=== PATIENT | female | born 1960 | race African-American/Black ===

== ENCOUNTER 2024-06-25 15:45 | Inpatient (IN) | payer OTHER, MEDICARE ==
[~2024-06-25] VITALS: Ht 157.5 cm; Wt 53.2 kg
[2024-06-25 19:27] LABS: BASOPHILS % 0.2 % (0.0-2.0); EOSINOPHILS % 0.4 % (0.0-5.0); HEMATOCRIT. 36.1 % (36.0-48.0); HEMOGLOBIN. 11.9 g/dL (12.0-16.0); LYMPHOCYTES % 18.6 % (20.0-50.0); MEAN CORPUSCULAR HEMOGLOBIN 31.5 pg (28.0-32.0); MEAN CORPUSCULAR HGB CONC 32.9 g/dL (31.0-37.0); MEAN CORPUSCULAR VOLUME 95.8 fL (81.0-99.0); MEAN PLATELET VOLUME 9.7 fl (7.4-10.4); NEUTROPHILS % 68.8 % (40.0-76.0); PLATELET 240 x1000/uL (130-400); RED BLOOD CELL COUNT 3.77 mill/uL (4.2-5.4); RED CELL DISTRIBUTION WIDTH 14.1 % (11.6-14.6); WHITE BLOOD COUNT 13.9 x1000/uL (4.5-11.0)
[2024-06-25 19:34] LABS: CHLORIDE 104 mEq/L (98-107); POTASSIUM 3.7 mEq/L (3.5-5.1); SODIUM 139 mEq/L (136-145)
[2024-06-25 19:37] LABS: CALCIUM 10.1 mg/dL (8.7-10.4); CARBON DIOXIDE 26 mEq/L (21-32)
[2024-06-25 19:42] LABS: ALANINE AMINOTRANSFERASE 35 IU/L (10-49); CREATININE 1.1 mg/dL (0.6-1.0); GLUCOSE 91 mg/dL (70-105); UREA NITROGEN BLOOD 16 mg/dL (9-23)
[2024-06-25 19:44] LABS: ALBUMIN 4.5 g/dL (3.2-4.8); ASPARTATE AMINOTRANSFERASE 28 IU/L (<34); BILIRUBIN DIRECT 0.2 mg/dL (<=3.0); BILIRUBIN TOTAL 0.6 mg/dL (0.1-1.0); PROTEIN TOTAL 7.9 g/dL (6.0-8.3)
[2024-06-25] MEDS: KETOROLAC 15MG/ML VIAL IV ONE (21:53)
[2024-06-25] MEDS: CEFTRIAXONE 1GM/50ML 50 ML IV NR (21:56)
[2024-06-26] MEDS: MORPHINE SULFATE 2 MG/ML INJ (NOT FOR IM USE) IV ONE (01:05)
[2024-06-26 04:00] VITALS: BP 164/81; PULSE 89; RESP 18; TEMP 37.00296; O2SAT 99
[2024-06-26 04:11] LABS: CLARITY URINE CLOUDY (CLEAR); COLOR URINE YELLOW (YELLOW); GLUCOSE URINE NEGATIVE (NEGATIVE); KETONES URINE NEGATIVE (NEGATIVE); LEUKOCYTE ESTERASE URINE 1+ (NEGATIVE); NITRITE URINE NEGATIVE (NEGATIVE); OCCULT BLOOD URINE 1+ (NEGATIVE); PH URINE 5.5 (4.5-8.0); PROTEIN URINE 1+ (NEGATIVE); SPECIFIC GRAVITY URINE 1.012 (1.005-1.030); UROBILINOGEN URINE 0.2 E.U./dL (0.2-1.0)
[2024-06-26 04:32] LABS: WBC URINE TNTC /hpf (0-2)
[2024-06-26 04:33] LABS: BACTERIA URINE 3+; SQUAMOUS EPITHELIAL CELL URINE 1+ /lpf (RARE/1+)
[2024-06-26 05:30] VITALS: BP 150/98; PULSE 89; RESP 18; TEMP 37.0296
[2024-06-26] MEDS ORDERED: ONDANSETRON HCL 4MG/2ML INJ IV PRN (05:30)
[2024-06-26] MEDS ORDERED: IPRATROPIUM/ALBUTEROL 0.5-3(2.5)MG/3ML NEB HHN PRN (05:30)
[2024-06-26] MEDS ORDERED: AMLO5TAB88 MT (06:18)
[2024-06-26] MEDS ORDERED: METO-411 MT (06:18)
[2024-06-26] MEDS ORDERED: ATOR40TA70 PO (06:19)
[2024-06-26] MEDS ORDERED: GLIP10TA10 PO (06:19)
[2024-06-26] MEDS ORDERED: ASPI-1497 PO (06:20)
[2024-06-26] MEDS ORDERED: LOSA100T33 PO (06:20)
[2024-06-26] MEDS: SODIUM CHLORIDE 0.45% 1,000 ML IV SCH (06:45)
[2024-06-26] MEDS: MORPHINE SULFATE 2 MG/ML INJ (NOT FOR IM USE) IV PRN (06:47)
[2024-06-26] MEDS ORDERED: *PATIENT'S OWN MEDICATION STORAGE XX SCH (07:00)
[2024-06-26] MEDS: BLOOD SUGAR DIAGNOSTIC STRIP TEST SCH (07:03)
[2024-06-26 08:00] VITALS: BP 158/84; PULSE 94; RESP 18; TEMP 36.72516; O2SAT 97
[2024-06-26] MEDS: LOSARTAN 100 MG TABLET PO SCH (08:26)
[2024-06-26] MEDS: ASPIRIN 81MG TABLET PO SCH (08:26)
[2024-06-26] MEDS ORDERED: MEDICATION NOT ON FORMULARY EA (Metoprolol Succinate 1 TAB) MT SCH (10:30)
[2024-06-26 12:00] VITALS: BP 139/76; PULSE 90; RESP 19; TEMP 36.3918; O2SAT 100
[2024-06-26] MEDS: AMLODIPINE 5MG TABLET PO SCH (12:54)
[2024-06-26] MEDS: ENOXAPARIN 40MG/0.4ML SYR SUBCUT SCH (12:54)
[2024-06-26] MEDS: ATORVASTATIN CALCIUM 40MG TABLET PO SCH (12:54)
[2024-06-26] MEDS: METOPROLOL SUCCINATE 50MG ER TABLET PO SCH (12:55)
[2024-06-26 16:00] VITALS: BP 130/61; PULSE 100; RESP 18; TEMP 36.28068; O2SAT 94
[2024-06-26 20:00] VITALS: BP 136/80; PULSE 78; RESP 18; TEMP 39.28092; O2SAT 98
[2024-06-26] MEDS: CEFTRIAXONE 1GM/50ML 50 ML IV SCH (20:26)
[2024-06-26 21:26] LABS: BASOPHILS % 0.6 % (0.0-2.0); EOSINOPHILS % 0.5 % (0.0-5.0); HEMATOCRIT. 37.8 % (36.0-48.0); HEMOGLOBIN. 12.5 g/dL (12.0-16.0); LYMPHOCYTES % 19.3 % (20.0-50.0); MEAN CORPUSCULAR HEMOGLOBIN 31.4 pg (28.0-32.0); MEAN CORPUSCULAR HGB CONC 33.1 g/dL (31.0-37.0); MEAN CORPUSCULAR VOLUME 94.8 fL (81.0-99.0); MEAN PLATELET VOLUME 9.9 fl (7.4-10.4); MONOCYTES % 7.6 % (2.0-8.0); PLATELET 266 x1000/uL (130-400); RED BLOOD CELL COUNT 3.99 mill/uL (4.2-5.4); WHITE BLOOD COUNT 9.7 x1000/uL (4.5-11.0)
[2024-06-26 21:29] LABS: CHLORIDE 100 mEq/L (98-107); POTASSIUM 3.8 mEq/L (3.5-5.1); SODIUM 134 mEq/L (136-145)
[2024-06-26 21:30] LABS: CALCIUM 10.3 mg/dL (8.7-10.4); CARBON DIOXIDE 26 mEq/L (21-32)
[2024-06-26 21:35] LABS: GLUCOSE 111 mg/dL (70-105); UREA NITROGEN BLOOD 13 mg/dL (9-23)
[2024-06-27] VITALS: BP 112/61; PULSE 107; RESP 18; TEMP 39.00312; O2SAT 97
[2024-06-27] MEDS ORDERED: ACETAMINOPHEN 325MG TABLET PO PRN (02:00)
[2024-06-27] MEDS: PIPERACILLIN/TAZO 3.375G/50ML 50 ML IV SCH (02:17)
[2024-06-27] MEDS: ACETAMINOPHEN 325MG TABLET PO PRN (02:18)
[2024-06-27] MEDS: VANCOMYCIN 1.25GM/250ML 250 ML IV SCH (02:32)
[2024-06-27 04:00] VITALS: BP 125/73; PULSE 91; RESP 18; TEMP 38.50308; O2SAT 98
[2024-06-27 08:00] VITALS: BP 112/69; PULSE 76; RESP 18; TEMP 36.16956; O2SAT 100
[2024-06-27 08:05] LABS: POTASSIUM 4.3 mEq/L (3.5-5.1)
[2024-06-27 08:06] LABS: CALCIUM 9.4 mg/dL (8.7-10.4)
[2024-06-27 08:08] LABS: BASOPHILS % 0.7 % (0.0-2.0); EOSINOPHILS % 0.2 % (0.0-5.0); HEMATOCRIT. 35.1 % (36.0-48.0); HEMOGLOBIN. 11.6 g/dL (12.0-16.0); LYMPHOCYTES % 16.3 % (20.0-50.0); MEAN CORPUSCULAR HEMOGLOBIN 31.6 pg (28.0-32.0); MEAN CORPUSCULAR HGB CONC 33.1 g/dL (31.0-37.0); MEAN CORPUSCULAR VOLUME 95.6 fL (81.0-99.0); MONOCYTES % 12.5 % (2.0-8.0); NEUTROPHILS % 70.3 % (40.0-76.0); PLATELET 223 x1000/uL (130-400); RED BLOOD CELL COUNT 3.67 mill/uL (4.2-5.4); RED CELL DISTRIBUTION WIDTH 13.5 % (11.6-14.6); WHITE BLOOD COUNT 10.4 x1000/uL (4.5-11.0)
[2024-06-27 08:11] LABS: CREATININE 1.3 mg/dL (0.6-1.0); T4 FREE 1.46 ng/dL (0.89-1.76); THYROID STIMULATING HORMONE 0.57 uIU/mL (0.55-4.78)
[2024-06-27] MEDS ORDERED: DEXTROSE 50% WATER 50ML SYRINGE IV PRN (10:30)
[2024-06-27 12:00] VITALS: BP 120/63; PULSE 85; RESP 18; TEMP 36.28068; O2SAT 100
[2024-06-27] MEDS ORDERED: INSULIN LISPRO 100 UNITS/ML SUBCUT SCH (12:20)
[2024-06-27] MEDS: INSULIN LISPRO (LOW DOSE) 100 UNITS/ML SUBCUT SCH (12:20)
[2024-06-27 16:00] VITALS: BP 139/71; PULSE 100; RESP 18; TEMP 38.78088; O2SAT 98
[2024-06-27] MEDS ORDERED: VANCOMYCIN 500MG PREMIX 100 ML IV SCH (18:00)
[2024-06-27 20:00] VITALS: BP 148/99; PULSE 99; RESP 20; TEMP 37.72524; O2SAT 99
[2024-06-27] MEDS ORDERED: VANCOMYCIN 750MG/150ML (BAXTER) IV SCH (23:00)
[2024-06-28] VITALS: BP 126/63; PULSE 91; RESP 20; TEMP 37.28076; O2SAT 96
[2024-06-28 07:24] LABS: CALCIUM 9.5 mg/dL (8.7-10.4); POTASSIUM 3.5 mEq/L (3.5-5.1)
[2024-06-28 07:29] LABS: CREATININE 1.3 mg/dL (0.6-1.0)
[2024-06-28 08:00] VITALS: BP 127/66; PULSE 98; RESP 19; TEMP 38.50308; O2SAT 100
[2024-06-28 12:00] VITALS: BP 112/69; PULSE 98; RESP 18; TEMP 36.3918; O2SAT 100
[2024-06-28 16:00] VITALS: BP 130/73; PULSE 83; RESP 18; TEMP 36.61404; O2SAT 100
[2024-06-28] MEDS ORDERED: NALOXONE HCL 0.4MG/ML VIAL IV PRN (17:30)
[2024-06-28] MEDS: LEVOFLOXACIN 500MG TABLET PO SCH (17:46)
[2024-06-28 20:00] VITALS: BP 147/74; PULSE 91; RESP 20; TEMP 36.61404; O2SAT 100
[2024-06-29] VITALS: BP 118/56; PULSE 93; RESP 20; TEMP 37.11408
[2024-06-29 04:00] VITALS: BP 159/79; PULSE 106; RESP 20; TEMP 37.2252; O2SAT 99
[2024-06-29 08:00] VITALS: BP 157/81; PULSE 103; RESP 20; TEMP 36.50292; O2SAT 100
[2024-06-29] MEDS: ENOXAPARIN 30MG/0.3ML SYR SUBCUT SCH (08:59)
[2024-06-29] MEDS ORDERED: LEVO-65 MT (13:27)
[2024-06-29 13:52] VITALS: BP 157/81; PULSE 103; TEMP 97.7; O2SAT 100
[2024-06-29] MEDS ORDERED: ATORVASTATIN CALCIUM 40MG TABLET PO SCH (21:00)
[2024-07-01] MEDS ORDERED: LEVOFLOXACIN 500MG TABLET PO SCH (11:00)
== END 2024-06-29 14:20 | disposition home or self-care (01) | DRG 690 ==
LOC: ER 15:45 → 6EST 23:54
PROVIDERS: ADMIT Internal Medicine; ATTEND Internal Medicine
DX: N12 Tubulo-interstitial nephritis, not specified as acute or chronic (principal); I13.0 Hypertensive heart and chronic kidney disease with heart failure and stage 1 through stage 4 chronic kidney disease, or unspecified chronic kidney disease; I50.9 Heart failure, unspecified; N18.9 Chronic kidney disease, unspecified; E11.22 Type 2 diabetes mellitus with diabetic chronic kidney disease; G43.909 Migraine, unspecified, not intractable, without status migrainosus; E11.649 Type 2 diabetes mellitus with hypoglycemia without coma; Z95.810 Presence of automatic (implantable) cardiac defibrillator; Z90.710 Acquired absence of both cervix and uterus
CPT/HCPCS: 80076; 80048; 83690; 85025; 36415; 74176; 93005; 99285; J0696; J1885; 71045; 76770; 80061; 80202; 81003; 82962; 83036; 84145; 84439; 84443; 87077; 87186; J1650; J1815; J2270; J2543; J3370